=== PATIENT | male | born 1995 | race Caucasian/White ===

== ENCOUNTER 2024-12-24 14:25 | Emergency (ER) | payer OTHER, SELFPAY ==
[2024-12-24] VITALS (10 sets, daily range): BP systolic 136–153; BP diastolic 73–98; PULSE 79–98; RESP 13–20; TEMP 36.3–37.1; O2SAT 98–100
--- OUTSIDE RECORDS SUMMARY | 2024-12-24 14:45 | XMS_ITS | Clinical Summary ---
Author Organization [facility] [address] Address [address] [place] [id number] Care Team Providers Care Drafter (Cad) Electrical Name Role Phone Manuel Painting MD Primary Care Provider [phone] Allergies No known active allergies Medications pantoprazole DR (PROTONIX) 40 mg EC tabletIndication s:Treatment of Non-Bleeding Gastric Disorder Take 1 tablet (40 mg total) by mouth daily 30 tablet 1 12/28/2021 Active famotidine (PEPCID) 20 mg tablet Take 1 tablet (20 mg total) by mouth daily Active Active Problems Problem Noted Date Diagnosed Date Encounter for medical examination to establish c are 11/27/2021 Assessment & Plan (11/27/2021 3:29 PM CDT): A(n) initial well visit to establish care has been performed today. Ozzie Rae III is up to date on screening tests. He is in need of None- no screening indicated at this time. He is not up to date on needed preventative vaccinations; He is in need of Tdap/Td, Pneumonia (Prevnar-13 or Pneumovax-23) and HPV. Will complete the record from his old PCP Protonix trial Will plan on GI referral for EGD Labs as ordered Gastroesophageal reflux disease without esophagi tis 11/24/2021 Assessment & Plan (02/20/2022 12:27 PM REPORTING ANALYST): Mild improvement noted Will plan on GI consultation Adding Pepcid to current pantoprazole regimen Discussed GERD-friendly cookbooks/recipes; [facility] [place] has several options Immunizations Immunization Administration Dates Next Due DTaP 07/03/2002, 9,1997,1997 ,1997 Hep B, Adolescent or Pediatric 1997,1996,1997 Hib (PRP-OMP) 07/10/1998,1997,1997 ,1997 IPV 07/03/2002,07/10/1998,1997 ,1997 Influenza, Unspecified 02/16/2022(Deferr ed: Patient Refused),01/03/2020(Deferred: Patient Refused) MMR 07/03/2002,04/08/1998 Meningococcal Conjugate (Menveo) 07/10/2014 Tdap 07/08/2008 Varicella 08/01/2007,07/03/2002 Medical History Medical History Date Comments Gastroesophageal reflux disease without esophagi tis Family History Medical History Relation Name Comments No Known Problems Father Diabetes Maternal Grandfather Breast cancer Maternal Grandmother Diabetes Maternal Grandmother No Known Problems Mother Dementia Paternal Grandfather Diabetes Paternal Grandfather Diabetes Paternal Grandmother No Known Problems Sister Relation Name Status Comments Father Alive Maternal Grandfather Alive Maternal Grandmother Alive Mother Alive Paternal Grandfather Paternal Grandmother Alive Sister Alive Social History Tobacco Use Types Packs/Day Years Used Date Smoking Tobacco: Some Days Cigarettes Started: 2014 Vaping Tobacco Cessation:Ready to Q uit: Not Asked; Counseling Given: Not Answered AUDIT-C Answer Date Recorded Q1: How often do you have a drink containing alc ohol? 2-4 times a month 11/24/2021 Q2: How many drinks containi ng alcohol do you have on a typical day when you are drinking? 10 or more 11/24/2021 Q3: How often do you have si x or more drinks on one occasion? Weekly 11/24/2021 PHQ-2 Answer Date Recorded PHQ-2 Total Score (If total score is 3 or more points, staff should administer the PHQ-9) 0 02/16/2022 Personal Safety Answer Date Recorded Getting School Help Needed Not on file 03/21 Sex and Gender Information Value Date Recorded Sex Assigned at Not on file Legal Sex Male 2:11 PM CDT Gender Identity Not on file Sexual Orientation Not on file Occupation Industry Job Start Date Job End Date student Not on file Not on file Not on file Obstetrics History Last Filed Vital Signs Vital Sign Reading Time Taken Comments Blood Pressure 106/74 02/16/2022 1:42 PM REPORTING ANALYST Pulse 93 02/16/2022 1:42 PM REPORTING ANALYST Temperature 37 C (98.6 F) 02/16/2022 1:42 PM REPORTING ANALYST Respiratory Rate 18 02/16/2022 1:42 PM REPORTING ANALYST Oxygen Saturation 98% 02/16/2022 1:42 PM REPORTING ANALYST Inhaled Oxygen Concentration - - Weight 117.5 kg (259 lb) 02/16/2022 1:42 PM REPORTING ANALYST Height 180.3 cm (5' 11) 02/16/2022 1:42 PM REPORTING ANALYST Body Mass Index 36.12 02/16/2022 1:42 PM REPORTING ANALYST Plan of Treatment Health Maintenance Due Date Last Done Comments Hepatitis C Screening 1997 Pneumococcal vaccine <65 (1 of 2 - PCV) 02/27/2016 DTaP/Tdap/Td Vaccine (7 - Td or Tdap) 07/08/2018 07/08/2008, 07/03/2002, 07/10/1998, Additional history exists Regular Well Visit/Exam 18-64 11/24/2022 11/24/2021 Depression Screening 02/16/2023 02/16/2022, 12/28/2021, 11/24/2021 HPV Vaccines (1 - 3-dose SCD M series) 02/27/2024 Influenza Vaccine (#1) 2024 Hepatitis B Screening Completed 1997 , 1997, 1997 Varicella Vaccines Completed 08/01/2007, 07/03/2002 Insurance [employer] OOS Member Subscriber Plan / Payer (Ef fective 2002-Present) Name:OZZIE RAE III Relation to Subscriber:Child Name:OZZIE RAE II Date of :1965 (Home) Address: [address] [place], [place] [address] [address] Payer ID:[id number] (NAIC) Type: ANIBAL Address: [address] [place] [id number] Care Teams Drafter (Cad) Electrical Relationship Specialty Start Date End Date Manuel Painting MD [address] [address] PCP - General Family Medicine 11/24/21
--- NOTE | 2024-12-24 17:15 | ECG_ITS ---
Test Date: 2024-12-24 17:37:32 Measurements Intervals [place] Rate: 79 P: 35 CT: 168 QRS: 85 QRSD: 96 T: 16 QT: 350 QTc: 403 Interpretive Statements SINUS RHYTHM NORMAL ECG No previous ECG available for comparison Electronically Signed On 12-25-2024 12:15:32 CDT by Glenn Ruby M.D.
[2024-12-24] MEDS: SODIUM CHLORIDE 0.9% IV 1,000 ML 999 ML IV CONT (17:38)
[2024-12-24 17:39] LABS: Hematocrit 48.8 % (42.0-52.0); Hemoglobin 16.8 g/dL (14.0-18.0); Immature Granulocyte Percent A 0.2 % (0-0.5); Lymphocytes Absolute Auto 1.67 K/mm3 (0.9-3.2); Mean Corpuscular HGB Conc 34.4 g/dl (32-36); Mean Corpuscular Hemoglobin 30.2 pg (26-34); Mean Corpuscular Volume 87.8 fl (80-100); Nucleated Red Blood Cells Absolute Auto 0.000 K/mm3 (0.0-0.012); Nucleated Red Blood Cells Perc 0.0 % (0.0-0.2); Platelet Count Result 340 k/mm3 (150-375); Red Blood Count 5.56 M/mm3 (4.6-6.20); White Blood Count 14.1 K/mm3 (4.5-10.0)
[2024-12-24 17:51] LABS: Alanine Aminotransferase 56 U/L (6-50); Albumin Level 5.1 g/dL (3.5-5.1); Alkaline Phosphatase 95 U/L (38-126); Anion Gap 10 mmol/L (4-12); Aspartate Amino Transferase 45 U/L (17-59); Bilirubin,Total 0.8 mg/dL (0.2-1.3); Blood Urea Nitrogen 14 mg/dL (9-20); Calcium 9.7 mg/dL (8.4-10.2); Carbon Dioxide 26 mmol/L (22-30); Chloride 101 mmol/L (98-107); Estimated CRCL calculation 129 ml/min; Estimated Glomerular Filt Rate > 60; Glucose 96 mg/dL (65-110); Lipase 64 U/L (23-300); Potassium 4.0 mmol/L (3.4-5.0); Sodium 137 mmol/L (137-145); Total Protein 8.6 g/dL (6.3-8.2)
--- NOTE | 2024-12-24 18:11 | ED_ITS ---
HPI - General Adult General Chief complaint: Anxiety Stated complaint: Anxious-pressure/hotness in head/face Time Seen by Provider: 12/24/24 16:45 History of Present Illness HPI narrative: Patient is a 29-year-old male with history of anxiety who presents ER with some anxiousness and concerns about his blood pressure. Week and a half ago he attended an [employer] event and had been outside drinking all day. After the weekend he started having increased anxiety during the week. He has known having diarrhea that health but this was worse than typical. He then began having flushing his ears this weekend. He drove down to another racing event with some friends for a guys get away. They drink all weekend and he was using cocaine have late Tuesday night into Tuesday morning. He has continued to feel like he is having flushing and anxiousness. No chest pain. No fevers or chills or sweats. No SI. Has used cocaine in the past but it had been several months. Related Data Allergies Allergy/AdvReac Type Severity Reaction Status Date / Time No Known Allergies Allergy Verified 12/24/24 14:26 Review of Systems 2 Review of Systems: All systems reviewed & are unremarkable except as noted in HPI and below Constitutional: Constitutional: Reports no additional constitutional complaints ENT: Reports system reviewed and no additional complaints, except as documented Cardiovascular: Cardiovascular: Reports no additional cardiovascular complaints Respiratory: Respiratory: Reports no additional respiratory complaints Gastrointestinal: Gastrointestinal: Reports no additional gastrointestinal complaints Genitourinary: Genitourinary: Reports no additional male genitourinary complaints PMFSH Past Medical History Medical History (Updated 12/24/24 @ 18:19 by Tito Stacy MD) Resolved nonalcoholic fatty liver disease Surgical History Surgical History (Updated 12/24/24 @ 18:13 by Tito Stacy MD) No history of previous surgery Social History Social History Substance use type: crack/cocaine Exam 2 Narrative: GENERAL: Well-appearing, well-nourished, and in no acute distress. HEAD: Normocephalic, atraumatic. ENT: Mucous membranes moist. CHEST: Clear to auscultation. No respiratory distress. HEART: Regular rate and rhythm. Normal peripheral pulses. ABDOMEN: Soft, nontender, nondistended,. EXTREMITIES: Normal range of motion. No edema. SKIN: Warm, dry, no rash. Very mild sunburn back of the neck and ears. NEURO: Alert and oriented x3. PSYCH: Normal mood and affect. Course Course Emergency Course: Patient resting comfortably. Labs unremarkable with exception nonspecific elevated leukocytosis. Patient given reassurance. I do think he is having anxiety about health is having increased stress on his body from having been drinking and using cocaine. Vital Signs Vital signs: Vital Signs Temperature 97.4 F L 12/24/24 15:04 Pulse Rate 98 12/24/24 15:04 Respiratory Rate 20 12/24/24 15:04 Blood Pressure 147/87 H 12/24/24 15:04 Pulse Oximetry 100 12/24/24 15:04 Oxygen Delivery Room Air 12/24/24 15:04 Temperature 98.7 F 12/24/24 16:16 Pulse Rate 91 12/24/24 18:31 Respiratory Rate 15 12/24/24 18:31 Blood Pressure 136/73 12/24/24 18:31 Pulse Oximetry 100 12/24/24 18:31 Oxygen Delivery Room Air 12/24/24 16:09 Medical Decision Making Vital Signs Vital Signs: Vital Signs Temperature 97.4 F L 12/24/24 15:04 Pulse Rate 98 12/24/24 15:04 Respiratory Rate 20 12/24/24 15:04 Blood Pressure 147/87 H 12/24/24 15:04 Pulse Oximetry 100 12/24/24 15:04 Oxygen Delivery Room Air 12/24/24 15:04 Temperature 98.7 F 12/24/24 16:16 Pulse Rate 91 12/24/24 18:31 Respiratory Rate 15 12/24/24 18:31 Blood Pressure 136/73 12/24/24 18:31 Pulse Oximetry 100 12/24/24 18:31 Oxygen Delivery Room Air 12/24/24 16:09 Lab Data 12/24/24 17:33 12/24/24 17:33 Labs: Lab Results 12/24/24 Range/Units 17:33 WBC 14.1 H (4.5-10.0) K/mm3 RBC 5.56 (4.6-6.20) M/mm3 Hgb 16.8 (14.0-18.0) g/dL Hct 48.8 (42.0-52.0) % MCV 87.8 (80-100) fl MCH 30.2 (26-34) pg MCHC 34.4 (32-36) g/dl RDW 12.2 (11.5-14.5) % Plt Count 340 (150-375) k/mm3 MPV 9.7 (7.4-10.4) fl Immature Gran % (Auto) 0.2 (0-0.5) % Neut % (Auto) 84.5 H (45.5-73.1) % Lymph % (Auto) 11.8 L (18.3-44.2) % Powell % (Auto) 3.2 (2.6-8.5) % Eos % (Auto) 0.1 (0-4.4) % Baso % (Auto) 0.2 (0.2-1.2) % Lymph # (Auto) 1.67 (0.9-3.2) K/mm3 Powell # (Auto) 0.5 (0.1-0.6) K/mm3 Eos # (Auto) 0.0 (0-0.3) K/mm3 Baso # (Auto) 0.0 (0.0-0.1) K/mm3 Abs Immat Gran (auto) 0.03 (0.00-0.031) K/mm3 Absolute Neuts (auto) 11.9 H (1.3-6.7) K/mm3 Absolute Nucleated RBC 0.000 (0.0-0.012) K/mm3 Nucleated RBC % 0.0 (0.0-0.2) % Sodium 137 (137-145) mmol/L Potassium 4.0 (3.4-5.0) mmol/L Chloride 101 (98-107) mmol/L Carbon Dioxide 26 (22-30) mmol/L Anion Gap 10 (4-12) mmol/L BUN 14 (9-20) mg/dL Creatinine 0.94 (0.7-1.3) mg/dL Estim Creat Clear Calc 129 ml/min Estimated GFR > 60 (59 - ) Glucose 96 (65-110) mg/dL Calcium 9.7 (8.4-10.2) mg/dL Total Bilirubin 0.8 (0.2-1.3) mg/dL AST 45 (17-59) U/L ALT 56 H (6-50) U/L Alkaline Phosphatase 95 (38-126) U/L Total Protein 8.6 H (6.3-8.2) g/dL Albumin 5.1 (3.5-5.1) g/dL Lipase 64 (23-300) U/L TSH (Reflex) 2.430 (0.465-4.68) uIU/mL ECG Data EKG #1: ECG completion date: 12/24/24 ECG completion time: 17:37 EKG Interpretation: normal rate (79), sinus rhythm, normal QRS, normal QT and NL axis Discharge Plan Discharge Clinical Impression: Anxiety about health Patient Disposition: Home Condition: Stable Instructions: Anxiety (ED) Additional Instructions: Please return to the emergency department if you develop severe and persistent chest pain, difficulty breathing, dizziness, leg swelling or if you are coughing up blood as these can be signs of a medical emergency. Please call your doctor for a follow up appointment to determine the need for further testing. Patient Language: Kazakh Follow-up/Referrals: Fabiola Fischer MD [Physician, Family Practice] - 1 Week
[2024-12-24 18:22] LABS: Thyroid Stimulating Hormone Reflex 2.430 uIU/mL (0.465-4.68)
== END 2024-12-24 18:56 | disposition home or self-care (01) ==
PROVIDERS: Emergency Provider Emergency Medicine
DX: F41.9 Anxiety disorder, unspecified (principal)
CPT/HCPCS: 36415; 80053; 83690; 84443; 85025; 93005; 96360; 99283; J7030

== ENCOUNTER 2025-03-23 15:57 | Emergency (ER) | payer OTHER, SELFPAY ==
--- NOTE | 2025-03-23 16:00 | ED.URI ---
HPI - URI/Sore Throat General Chief Complaint: Upper Respiratory Infection Stated Complaint: sore throat Time Seen by Provider: 03/23/25 16:12 Source: patient, RN notes reviewed and old records reviewed Mode of arrival: ambulatory Limitations: no limitations History of Present Illness HPI Narrative: 30-year-old male presents to the [facility] with complaints of a sore throat that started 4 days ago. Patient also reports left ear pain, cheek pain. Has been taken Tylenol and ibuprofen. Denies fevers. Denies past medical history Treatments prior to arrival: acetaminophen and ibuprofen Related Data Allergies Allergy/AdvReac Type Severity Reaction Status Date / Time No Known Allergies Allergy Verified 03/23/25 16:05 Review of Systems Review of Systems: All systems reviewed & are unremarkable except as noted in HPI and below Constitutional: Constitutional: Reports no additional constitutional complaints ENT: Reports as per HPI and Reports sore throat Cardiovascular: Cardiovascular: Reports no additional cardiovascular complaints, Denies chest pain and Denies dyspnea Respiratory: Respiratory: Reports no additional respiratory complaints, Denies chest congestion, Denies cough and Denies dyspnea Musculoskeletal: Musculoskeletal: Reports no additional musculoskeletal complaints Integumentary/Breasts: Skin/Breast: Reports system reviewed and no additional complaints, except as docu PMFSH Past Medical History Medical History Resolved nonalcoholic fatty liver disease Surgical History Surgical History No history of previous surgery Social History Social History Substance use type: crack/cocaine Comments At the time of my signature, I reviewed and agree with the nursing past medical, surgical, social, and family history. There is no relevant family history pertinent to the patient complaint. Exam Const: General: cooperative, healthy appearing, comfortable, no acute distress, well developed, alert and well nourished Nutritional Appearance: well nourished Orientation/consciousness: patient oriented x3 Limitations: no limitations HENMT: Head: normal to inspection Ears: hearing grossly normal bilaterally, external ears normal, TM's normal bilaterally, EAC's normal, mastoids normal and no periauricular adenopathy Face and sinus: normal facial exam, sinuses nontender and face symmetric Mouth: Yes Normal oral and palatal mucosa present, Yes lip normal, Yes tongue normal and Yes moist mucous membranes Throat: posterior oropharynx normal, uvula midline, abnormal tonsil bilateral erythema and hypertrophy 2+; no exudates and no uvular edema Eyes: General: appearance normal, both eyes and all related structures Alignment and Position: alignment normal Eyelids: eyelids normal Neck: Neck: normal visual inspection, full ROM, no lymphadenopathy and no meningeal signs Chest: Chest palpation & inspection: normal inspection of the chest Resp: Effort & Inspection: normal respiratory effort and able to speak in complete sentences Auscultation: clear to auscultation bilaterally, no crackles, no rales, no rhonchi and no wheezes Cardio: Rate: regular rate Skin: General skin exam: normal color and no rashes or lesions noted Neuro: General: patient oriented x3, gait normal, moves all extremities and no meningeal signs Cognition (Neuro): normal cognition Speech: normal speech Gait exam (Neuro): Normal gait present Extrem: General: normal to inspection, full ROM, capillary refill normal and normal gait Psych: Appearance: grossly normal and well kempt Mental Status: mental status grossly normal Speech and movement: Normal speech and movement present and Clear speech present Affect: normal affect Attitude: cooperative Course Course Level of Care: Express Care Visit Vital Signs Vital signs: Vital Signs Temperature 97.7 F 03/23/25 16:05 Pulse Rate 100 03/23/25 16:05 Respiratory Rate 16 03/23/25 16:05 Blood Pressure 148/86 H 03/23/25 16:05 Pulse Oximetry 100 03/23/25 16:05 Oxygen Delivery Room Air 03/23/25 16:05 Temperature 97.7 F 03/23/25 16:05 Pulse Rate 100 03/23/25 16:05 Respiratory Rate 16 03/23/25 16:05 Blood Pressure 148/86 H 03/23/25 16:05 Pulse Oximetry 100 03/23/25 16:05 Oxygen Delivery Room Air 03/23/25 16:05 reviewed MDM MDM Narrative Medical decision making narrative: patient sitting up comfortably in exam room, nontoxic, vitals are stable except blood pressure mildly elevated. Patient was sore throat for 4 days, worsening. Strep test is positive. Patient is appropriate for outpatient treatment with close follow-up. Discharge instructions reviewed with patient, as well as provided in writing per nursing staff. The instructions also include specific and strict return/GO TO THE ER as well as f/u information. All questions have been answered, and the patient deny any further questions with discharge and discharge plan. Some parts of this dictation were generated by voice recognition software and may contain typographical and/or grammatical inaccuracies. Differential Diagnosis Differential Diagnosis: Differential diagnostic considerations for upper respiratory infection include upper respiratory infection, croup, otitis media, sinusitis, viral infection, bronchitis, influenza, pharyngitis, strep, uvulitis.? Lab Data Labs: Lab Results 03/23/25 Range/Units 16:14 POC Grp A Strep Screen Positive (Negative) Reviewed Discharge Plan Discharge Clinical Impression: Strep pharyngitis Patient Disposition: Home Condition: Stable Instructions: Antibiotic Form, Strep Throat (ED) Additional Instructions: After 24-48 hours on antibiotics, Throw the toothbrush away, start using a new one. Please be sure to wash bed linens especially pillow cases. Repeat once you finish the antibiotics. Do not share drinks. Take Motrin 600mg alternating with Tylenol 650mg for pain and fever alternating every 3-4 hours. Increase fluids, avoid caffeine. Give plenty of water, juice, Gatorade, Pedialyte, ice pops in Jell-O Follow up with Primary provider if not getting better this week today your blood pressure was 148/86. If you are having a hard time finding a physician please call our [facility] liaison at [phone]. For new or worsening symptoms go directly to the emergency room Patient Language: Chinese Prescriptions: New amoxicillin 875 mg tablet 875 mg PO Q12H Qty: 20 0RF Follow-up/Referrals: Tuan Lindsay MD [Primary Care Provider, Family Practice] Stand Alone Forms: Work/School Release IP Time of Disposition: 16:21
[2025-03-23 16:05] VITALS: BP 148/86; PULSE 100; RESP 16; TEMP 36.5; O2SAT 100
[2025-03-23 16:15] LABS: EDSTREPNEGPOS1 Positive (Negative)
== END 2025-03-23 16:25 | disposition home or self-care (01) ==
PROVIDERS: Emergency Provider Nurse Practitioner; PCP Emergency Medicine
DX: J02.0 Streptococcal pharyngitis (principal)
CPT/HCPCS: 87880; 99213; G0463